=== PATIENT | female | born 1980 | race Asian ===

== ENCOUNTER 2017-05-07 07:49 | Day surgery (SDC) | payer OTHER ==
[~2017-05-07 07:49] MED LIST: LIDOCAINE 2% (SDV) 5 ML INJ
[2017-05-07] MEDS ORDERED: CEFAZOLIN 1 GM/50 ML (PMX) 50 ML IVPB (12:00)
[2017-05-07] MEDS ORDERED: FENTAnyl 50 MCG/ML VIAL (13:31)
[2017-05-07] MEDS ORDERED: SUCCINYLCHOLINE CHLORIDE 100 MG/5 ML SYG IV (13:32)
[2017-05-07] MEDS ORDERED: SUGAMMADEX SODIUM 200 MG/2 ML VIAL IV (14:05)
[2017-05-07] MEDS ORDERED: CEFAZOLIN 1 GM INJ (14:05)
[2017-05-07] MEDS ORDERED: PROPOFOL 20 ML (14:05)
[2017-05-07] MEDS ORDERED: ROCURONIUM 50 MG INJ (14:05)
[2017-05-07] MEDS: BUPIVACAINE 0.25% (MPF) 30 ML INJ (14:26)
[2017-05-07] MEDS: HYDROCODONE/APAP (5/325) TAB PO (14:30)
[2017-05-07] MEDS: HYDROmorphONE (0.2 MG/ML) 10ML SYG IV ×2 (14:47→14:55)
[2017-05-07] MEDS: ONDANSETRON 4 MG INJ IV ×2 (14:47→17:37)
[2017-05-07] MEDS ORDERED: HYDROmorphONE (0.2 MG/ML) 10ML SYG IV (15:00)
[2017-05-07] MEDS ORDERED: METOCLOPRAMIDE 10 MG INJ IV (15:00)
[2017-05-07] MEDS ORDERED: DIPHENHYDRAMINE 50 MG INJ IV (15:00)
[2017-05-07] MEDS ORDERED: ALBUTEROL 0.083% (NEB) 2.5 MG/3 ML AMP HHN (15:00)
[2017-05-07] MEDS ORDERED: MEPERIDINE 25 MG INJ IV (15:00)
[2017-05-07] MEDS ORDERED: FENTAnyl 50 MCG/ML VIAL IV ×2 (15:00)
[2017-05-07] MEDS: SOD CHLORIDE 0.9% 1,000 ML IV (15:12)
[2017-05-07] MEDS ORDERED: ALBUMIN HUMAN 5% 250 ML (15:47)
[2017-05-07] MEDS ORDERED: ALBUMIN HUMAN 5% 250 ML IV (16:00)
== END 2017-05-07 18:10 | disposition home or self-care (01) ==
LOC: SDS 07:49
DX: N60.11 Diffuse cystic mastopathy of right breast (principal); N60.21 Fibroadenosis of right breast
CPT/HCPCS: 19301; 84703; 88307

== ENCOUNTER 2018-10-17 07:23 | Day surgery (SDC) | payer OTHER ==
[2018-10-17] MEDS ORDERED: MIDAZOLAM 1 MG/ML 2 ML INJ (11:55)
[2018-10-17] MEDS ORDERED: LIDOCAINE 2% (SDV) 5 ML INJ (11:55)
[2018-10-17] MEDS ORDERED: PROPOFOL 20 ML (11:55)
[2018-10-17] MEDS ORDERED: HYDROmorphONE 1 MG/5 ML IV SYRINGE IV (12:00)
[2018-10-17] MEDS ORDERED: ONDANSETRON 4 MG INJ (12:15)
[2018-10-17] MEDS ORDERED: SUGAMMADEX SODIUM 200 MG/2 ML VIAL IV (12:36)
[2018-10-17] MEDS: LIDOCAINE 1%/EPI 30 ML INJ (12:48)
[2018-10-17] MEDS: GELATIN SIZE 100 SPONGE (12:48)
[2018-10-17] MEDS: EPINEPHrine 1 MG INJ (12:48)
[2018-10-17] MEDS: HYDROmorphONE 1 MG/5 ML IV SYRINGE IV ×2 (13:13→13:21)
[2018-10-17] MEDS: ONDANSETRON 4 MG INJ IV (15:05)
[2018-10-17] MEDS: HYDROCODONE/APAP (5/325) TAB PO (15:20)
[2018-10-17] MEDS ORDERED: ACETAMINOPHEN 325 MG TAB PO (17:30)
== END 2018-10-17 17:08 | disposition home or self-care (01) ==
LOC: SDS 07:23
DX: H72.92 Unspecified perforation of tympanic membrane, left ear (principal)
CPT/HCPCS: 69631